=== PATIENT | male | born 1965 | race Caucasian/White ===

== ENCOUNTER 2017-03-23 22:15 | Emergency (ER) | payer BC ==
[~2017-03-23] VITALS: Ht 175.3 cm; Wt 136.1 kg
[~2017-03-23 22:15] MED LIST: ADULT LOW DOSE81 MG PO; ASPIRIN325 PO; ELIQUIS5 MG PO; HYDROCODONE-AP1 EAC6 PO; KEFLEX500 MG PO; KLOR-CON 1010 MEQ PO; LASIX 80 MG TAB80 MG PO; LOPRESSOR 12.12.5 MG PO; LOPRESSOR25 PO; LOPRESSOR50; NOHOMEMEDICATIONS; PROPAFENONE HC300 MG; RYTHMOL150 MG PO; XANAX 0.25 MG0.25 MG PO
[2017-03-23] MEDS ORDERED: LOPRESSOR50 PO (22:20)
[2017-03-24] MEDS ORDERED: HYDROCODONE-AP1 EAC6 PO (00:29)
[2017-03-24] MEDS ORDERED: FLEXERIL PO (00:29)
[2017-03-24 01:05] VITALS: BP 134/80
== END 2017-03-24 01:07 | disposition home or self-care (01) ==
LOC: M.ERS 22:15
DX: S86.911A Strain of unspecified muscle(s) and tendon(s) at lower leg level, right leg, initial encounter (principal); I25.2 Old myocardial infarction; I48.91 Unspecified atrial fibrillation; W18.39XA Other fall on same level, initial encounter; Y93.01 Activity, walking, marching and hiking; Y92.89 Other specified places as the place of occurrence of the external cause; Y99.8 Other external cause status

== ENCOUNTER 2017-06-03 08:45 | Emergency (ER) | payer BC ==
[~2017-06-03] VITALS: Ht 175.3 cm; Wt 136.1 kg
[~2017-06-03 08:45] MED LIST changes: +FLEXERIL PO; +LOPRESSOR50 PO
[2017-06-03] MEDS ORDERED: AMIODARONE HCL100 MG PO (08:59)
[2017-06-03 09:13] LABS: ABSOLUTE BASOPHILS 0.1 thou/uL (0.0-0.2); ABSOLUTE EOSINOPHILS 0.2 thou/uL (0.0-0.7); ABSOLUTE LYMPHOCYTES 2.4 thou/uL (0.8-5.3); ABSOLUTE MONOCYTES 0.6 thou/uL (0.0-1.2); ABSOLUTE NEUTROPHILS 6.5 thou/uL (1.6-8.1); BASOPHILS 1.1 %; EOSINOPHILS 2.1 %; HEMATOCRIT 45.1 % (42.0-52.0); HEMOGLOBIN 15.2 gm/dL (14.0-18.0); LYMPHOCYTES 24.3 %; MCH 31.9 pg (26.0-34.0); MCHC 33.8 g/dL (28.0-37.0); MCV 94.4 fL (80.0-100.0); MONOCYTES 6.4 %; NUCLEATED RBCS 0 /100WBC; PLATELET COUNT* 223 thou/uL (150-400); POLYS 66.1 %; RBC 4.78 mil/uL (4.50-6.00); RDW-CV 13.1 % (10.5-14.5); WBC 9.9 thou/uL (4.0-11.0)
[2017-06-03 09:28] LABS: CALCIUM 8.8 mg/dL (8.5-10.1); CREATININE 1.3 mg/dL (0.6-1.3); POTASSIUM 4.3 mmol/L (3.5-5.1)
[2017-06-03 09:33] LABS: APTT 25.4 Seconds (25.0-31.3); PROTIME 9.8 Seconds (9.20-11.50)
[2017-06-03 09:40] LABS: ALBUMIN 3.2 g/dL (3.4-5.0); TOTAL BILIRUBIN 0.3 mg/dL (<0.1-1.0); TOTAL PROTEIN 6.6 g/dL (6.4-8.2)
[2017-06-03] MEDS ORDERED: KEFLEX500 M1 PO (10:28)
[2017-06-03] MEDS ORDERED: PERCOCET 5-3251 EACH PO (10:28)
[2017-06-03 10:37] VITALS: BP 133/88
--- NOTE | 2017-06-03 15:10 | EKG ---
[place] [address] ELECTROCARDIOGRAM REPORT Name: SRINIVASADONITA Cartagena [id number] Admission: 06/03/17 Attend Phys: Discharge: 06/03/17 Date of : 65 Report #: [id number] THIS REPORT FOR: //name// [facility] ED Test Date: 2017-06-03 Test Time: 09:10:43 Pat Name: DONITA BERNABE Department: Room: Gender: Digital Photographer: THEE Ramirez : 1965 Requested By: Jus Lazaro Order Number: [id number] MD: Hemal Sears Measurements Intervals [place] Rate: 118 P: NM: QRS: 110 QRSD: 99 T: 44 QT: 346 QTc: 485 Interpretive Statements Atrial fibrillation incomplete RBBB Compared to ECG 08/06/2015 11:31:53 Myocardial infarct finding now present Ventricular premature complex(es) no longer present Electronically Signed On 06-03-2017 15:10:12 CDT by Hemal Sears [email or web address] <ELECTRONICALLY SIGNED> By: Hemal Sears MD, [facility] 06/03/17 1510 9 9 Hemal Sears MD, FACC /EPI
== END 2017-06-03 10:38 | disposition home or self-care (01) ==
LOC: M.ERS 08:45
PROVIDERS: Family Medicine
DX: R60.0 Localized edema (principal); I48.91 Unspecified atrial fibrillation; F17.210 Nicotine dependence, cigarettes, uncomplicated

== ENCOUNTER 2017-11-09 14:02 | Inpatient (IN) | payer BC ==
[~2017-11-09] VITALS: Ht 175.3 cm; Wt 136.1 kg
[~2017-11-09 14:02] MED LIST changes: +AMIODARONE HCL100 MG PO; +KEFLEX500 M1 PO; +PERCOCET 5-3251 EACH PO
[2017-11-09 14:04] VITALS: BP 183/113
[2017-11-09 14:40] LABS: ABSOLUTE BASOPHILS 0.1 thou/uL (0.0-0.2); ABSOLUTE EOSINOPHILS 0.1 thou/uL (0.0-0.7); ABSOLUTE LYMPHOCYTES 2.8 thou/uL (0.8-5.3); ABSOLUTE MONOCYTES 0.8 thou/uL (0.0-1.2); ABSOLUTE NEUTROPHILS 9.8 thou/uL (1.6-8.1); EOSINOPHILS 0.8 %; HEMATOCRIT 47.4 % (42.0-52.0); HEMOGLOBIN 15.9 gm/dL (14.0-18.0); LYMPHOCYTES 20.4 %; MCH 31.4 pg (26.0-34.0); MCHC 33.6 g/dL (28.0-37.0); MCV 93.3 fL (80.0-100.0); MPV 8.3 fl. (7.2-11.1); NUCLEATED RBCS 0 /100WBC; PLATELET COUNT* 252 thou/uL (150-400); POLYS 71.8 %; RBC 5.08 mil/uL (4.50-6.00); RDW-CV 12.4 % (10.5-14.5); WBC 13.6 thou/uL (4.0-11.0)
[2017-11-09 14:44] LABS: ANION GAP 9 mmol/L (7-16); BUN 13 mg/dL (7-18); CALCIUM 9.2 mg/dL (8.5-10.1); CHLORIDE 101 mmol/L (98-107); CO2 28 mmol/L (21-32); CREATININE 1.2 mg/dL (0.6-1.3); GLUCOSE 262 mg/dL (70-99); POTASSIUM 4.1 mmol/L (3.5-5.1); SODIUM 138 mmol/L (136-145)
[2017-11-09 14:55] LABS: ALBUMIN 3.7 g/dL (3.4-5.0); ALKALINE PHOSPHATASE 97 U/L (46-116); LIPASE 139 U/L (73-393); NT-PRO BRAIN NAT PEPTIDE 145 pg/mL (<300); SGOT 24 U/L (15-37); SGPT 48 U/L (30-65); TOTAL BILIRUBIN 0.4 mg/dL (<0.1-1.0); TOTAL PROTEIN 7.6 g/dL (6.4-8.2); TROPONIN-I LEVEL <0.06 ng/mL (<0.06)
[2017-11-09 16:22] VITALS: BP 125/77
[2017-11-09 16:30] VITALS: BP 135/78
[2017-11-09 20:00] VITALS: BP 147/87
[2017-11-10] VITALS (7 sets, daily range): BP systolic 104–151; BP diastolic 76–89
[2017-11-10 05:18] LABS: HEMATOCRIT 43.2 % (42.0-52.0); HEMOGLOBIN 14.4 gm/dL (14.0-18.0); MCH 31.9 pg (26.0-34.0); MCHC 33.4 g/dL (28.0-37.0); MCV 95.5 fL (80.0-100.0); MPV 8.4 fl. (7.2-11.1); RBC 4.52 mil/uL (4.50-6.00)
[2017-11-10 05:39] LABS: CALCIUM 8.7 mg/dL (8.5-10.1); CREATININE 1.3 mg/dL (0.6-1.3); MAGNESIUM 1.7 mg/dL (1.8-2.4); POTASSIUM 4.2 mmol/L (3.5-5.1)
--- NOTE | 2017-11-10 13:39 | CON ---
[address] [address] CONSULTATION Name: MORRO BERNABE Room: [address] IN .R.#: [id number] Admission: 11/09/17 Attend Phys: Austen Gould MD Discharge: Date of : 65 Report #: [id number] THIS REPORT FOR: //name// CC: Austen WILSON DO Haley Wilson INDICATION: Recurrent atrial fibrillation and chest pain. HISTORY OF PRESENT ILLNESS: The patient is a very pleasant 52-year-old gentleman who is well known to myself. He has paroxysmal atrial fibrillation. He reports running out of his medications approximately 2 months ago. His medications at that time included Eliquis and amiodarone. He has had recurrent atrial fibrillation at this time. He also reports prolonged midsternal chest discomfort radiating to the neck, jaw and bilateral forearms yesterday with hypertension. The patient was admitted to the hospital. Cardiac enzymes thus far are unremarkable. EKG shows atrial fibrillation initially with rapid ventricular response. I do not appreciate any ST elevation. At the time of interview, he was more stable. His heart rate had improved, he remains in atrial fibrillation. His chest discomfort has resolved. He has no prior history of coronary artery disease. He does have a history of diastolic heart failure in the past with slight exacerbation at this time. He has obstructive sleep apnea for which he uses CPAP. PAST MEDICAL HISTORY: 1. Paroxysmal atrial fibrillation. 2. Obstructive sleep apnea. 3. Dorman's esophagitis. 4. Normal catheterization in 2010. 5. Right femur repair in 1984. 6. Back surgery in 1998. 7. Cardioversion 05/2015. FAMILY HISTORY: The patient's father had heart disease. The patient's mother had breast cancer. The patient's maternal grandfather had heart disease, maternal grandmother had heart disease. SOCIAL HISTORY: The patient smokes half to one pack of cigarettes daily. He denies use of alcohol. ALLERGIES: None. HOME MEDICATIONS: Lasix 80 mg p.o. b.i.d., potassium 40 mEq daily, Eliquis 5 mg b.i.d., metoprolol succinate 100 mg one-half tablet b.i.d., propafenone 300 mg p.o. q. 8 hours. REVIEW OF SYSTEMS: [place] [address] CONSULTATION Name: MORRO BERNABE Room: [address]#: [id number] Admission: 11/09/17 Attend Phys: Austen Gould MD Discharge: Date of : 65 Report #: [id number] GENERAL: Denies convulsions, seizures or focal paralysis. In general, there is no unexplained weight loss, or fever. RESPIRATORY: Occasional cough that is nonproductive. He denies orthopnea or paroxysmal nocturnal dyspnea. CARDIAC: As outlined above. ENDOCRINE: No history of diabetes or thyroid disease. GASTROINTESTINAL: No vomiting, hematemesis, melena, hematochezia. GENITOURINARY: No dysuria or hematuria. HEMATOLOGIC AND LYMPHATIC: No history of anemia, bleeding disorder or cancer. ALLERGY AND IMMUNOLOGIC: No significant seasonal or medical allergies. PSYCHIATRIC: No depression or anxiety. MUSCULOSKELETAL: No arthritis or connective tissue disease. SKIN: No recent rashes, hives or chronic skin conditions. EYES: He does wear glasses, has no acute loss in vision. EARS, NOSE, MOUTH, THROAT: He denies any decreased hearing or epistaxis. PHYSICAL EXAMINATION: VITAL SIGNS: Blood pressure 118/76, pulse is in the 70s and irregular. GENERAL: Pleasant, obese gentleman in no distress. Mood and affect appropriate. HEENT: The patient wears glasses. Extraocular muscles intact. Mucous membranes moist. NECK: Shows no jugular venous distention. There are no carotid bruits. CHEST: Reveals clear lung dodge without wheezes or rales. CARDIAC: Reveals an irregularly irregular rhythm without gallop or murmur. ABDOMEN: Reveals normal bowel sounds. The abdomen is soft, nontender. EXTREMITIES: Shows trace pedal and ankle edema. Peripheral pulses 2+ and palpable. SKIN: Warm and dry. LABORATORY DATA: Reviewed. Electrolytes within normal limits. BUN 17, creatinine 1.3, serum glucose 266. LFTs within normal limits. Troponin is less than 0.06 on 3 separate occasions. NT-proBNP is 145. CBC is within normal limits. Chest x-ray shows no acute process. IMPRESSION AND RECOMMENDATIONS: 1. Recurrent atrial fibrillation with rapid ventricular response. We will place the patient on bolus dose flecainide in an attempt for chemical cardioversion. Resume Eliquis 5 mg b.i.d. Continue telemetry monitoring. Continue diltiazem for rate control. 2. Chest pain. The patient has ruled out for myocardial infarction. We will obtain noninvasive stress testing at this time. Further intervention pending that result. 3. Obstructive sleep apnea. Continue CPAP. [facility] [address] [place] [address] CONSULTATION Name: MORRO BERNABE Room: [address] [facility] IN M.R.#: [id number] Admission: 11/09/17 Attend Phys: Austen Gould MD Discharge: Date of : 65 Report #: [id number] 4. Chronic tobacco use, smoking cessation discussed and advised. 5. Fxvgk-[id number]-tkpsyni diastolic heart failure with slight exacerbation. Continue furosemide. <ELECTRONICALLY SIGNED> By: Morro Valdez MD, FACC 11/10/17 1339 0932 [id number] Valdez MD, FACC /nt
--- NOTE | 2017-11-10 14:49 | EKG ---
[place] [address] ELECTROCARDIOGRAM REPORT Name: MORRO BERNABE Room: [address] ADM IN M.R.#: [id number] Admission: 11/09/17 Attend Phys: Austen Gould MD Discharge: Date of : 65 Report #: [id number] THIS REPORT FOR: //name// [facility] ED Test Date: 2017-11-09 Test Time: 14:06:39 Pat Name: MORRO SRINIVASA Department: Room: [facility] Gender: M Clerical Aide Teacher: : 1965 Requested By: Jaspreet Gonzalez Order Number: [id number] MD: Morro Valdez Measurements Intervals [place] Rate: 118 P: ME: QRS: 40 QRSD: 107 T: 25 QT: 298 QTc: 418 Interpretive Statements Atrial fibrillation Low voltage, precordial leads Right bundle-branch block Abnormal R-wave progression, early transition Compared to ECG 06/03/2017 09:10:43 Low QRS voltage now present Electronically Signed On 11-10-2017 14:49:24 CDT by Morro Valdez [email or web address] <ELECTRONICALLY SIGNED> By: Morro Valdez MD, FACC 11/10/17 1449 1406 1406 Morro Valdez MD, [facility] /EPI
--- NOTE | 2017-11-10 15:49 | 2DMMODE ---
[place] [address] 2 D/M-MODE ECHOCARDIOGRAM Name: MORRO BERNABE Room: [address] IN [facility]#: [id number] Admission: 11/09/17 Attend Phys: Austen Gould, Discharge: Date of : 65 Date of Service: 11/10/17 1549 Report #: [id number] THIS REPORT FOR: //name// APPROVED REPORT Study performed: 11/10/2017 13:35:20 EXAM: Comprehensive 2D, Doppler, and color-flow Echocardiogram Patient Location: In-Patient Room #: 206 Status: routine BSA: 2.45 HR: 71 bpm BP: 118/76 mmHg Rhythm: Atrial Fibrillation Other Information Technically limited study due to body habitus, poor endocardial definition. Indications Atrial Fibrillation Dyspnea Echo Enhancing Agent Indication: Endocardial border delineation Agent(s) / Amount(s) Used: Optison 3 cc 2D Dimensions LVEF(%): 68.55 (>50%) IVSd: 13.73 (7-11mm) LVOT Diam: 20.64 (18-24mm) LVDd: 43.33 mm PWd: 12.53 (7-11mm) Ascending Ao: 28.88 (22-36mm) LVDs: 26.83 (25-40mm) Aortic Root: 31.90 mm Elder's LVEF: 68.55 % Volumes Left Atrial Volume (Systole) LA ESV Index: 29.10 mL/m2 Aortic Valve AoV Peak Manish.: 1.17 m/s AO Peak Gr.: 5.51 mmHg LVOT Max P.46 mmHg AO Mean Gr.: 3.12 mmHg LVOT Mean P.89 [place] [address] 2 D/M-MODE ECHOCARDIOGRAM Name: MORRO BERNABE Room: [address] IN ..#: [id number] Admission: 11/09/17 Attend Phys: Austen Gould, Discharge: Date of : 65 Date of Service: 11/10/17 1549 Report #: [id number] LVOT Max V: 1.27 m/s AO V2 VTI: 18.44 cm LVOT Mean V: 0.76 m/s JELANI (VTI): 3.56 cm2 LVOT V1 VTI: 19.63 cm Mitral Valve MV Decel. Time: 166.26 ms MV PHT: 48.22 ms MVA (PHT): 4.56 cm2 Pulmonary Valve PV Peak Manish.: 1.18 m/s PV Peak Gr.: 5.56 mmHg Left Ventricle The left ventricle is normal size. There is normal LV segmental wall motion. Mild concentric left ventricular hypertrophy. Left ventricular systolic function is normal. The left ventricular ejection fraction is within the normal range. LVEF is 60-65%. This study is not technically sufficient to allow evaluation of the LV diastolic function due to atrial fibrillation. Right Ventricle Right ventricle is mildly dilated. The right ventricular systolic function is normal. Atria Left atrium is mildly dilated. Right atrium is mildly dilated. Aortic Valve The aortic valve is normal in structure. No aortic regurgitation is present. There is no aortic valvular stenosis. Mitral Valve The mitral valve is normal in structure. There is no mitral valve regurgitation noted. No evidence of mitral valve stenosis. Tricuspid Valve The tricuspid valve is normal in structure. Unable to assess PA pressure. Trace tricuspid regurgitation. Pulmonic Valve The pulmonary valve is normal in structure. Trace pulmonic regurgitation. Great Vessels The aortic root is normal in size. [place] [address] 2 D/M-MODE ECHOCARDIOGRAM Name: MORRO BERNABE Room: [address] IN [facility]#: [id number] Admission: 11/09/17 Attend Phys: Austen Gould, Discharge: Date of : 65 Date of Service: 11/10/17 1549 Report #: [id number] visualized. Pericardium There is no pericardial effusion. <Conclusion> The left ventricle is normal size. Mild concentric left ventricular hypertrophy. Left ventricular systolic function is normal. The left ventricular ejection fraction is within the normal range. LVEF is 60-65%. Right ventricle is mildly dilated. Left atrium is mildly dilated. Right atrium is mildly dilated. <ELECTRONICALLY SIGNED> By: Morro Valdez MD, FACC 11/10/17 1549 1549 1549 Morro Valdez MD, FACC /INF
--- NOTE | 2017-11-10 15:53 | CARDNUC ---
[place] [address] CARDIAC NUCLEAR IMAGING REPORT Name: MORRO BERNABE Room: [address] IN [facility]#: [id number] Admission: 11/09/17 Attend Phys: Austen Gould, Discharge: Date of : 65 Date of Service: 11/10/17 1553 Report #: [id number] THIS REPORT FOR: //name// APPROVED REPORT Imaging Protocol: Stress Tc-99m/Rest Tc-99m 2 days Study performed: 11/10/2017 09:33:00 Indication: Chest pain, Dyspnea Patient Location: In-Patient Room #: 206 Stress Tech: Mariel Mason Stress Nurse: Rosana Roberts RN NM Tech:KIRBY Marie Ht: 5 ft 9 in Wt: 300 lbs BSA: 2.45 m2 BMI: 44.29 Medical History Medical History: Obesity , SOB, Smoking, HTN, PVD, Atrial Fibrillation, CVD, [place] Medications: DILTIAZEM, ELIQUIS, METOPROLOL Allergies: No known drug allergies Cardiac Risk Factors: Age, PVD, HTN , Current Smoker, SOB, OBESITY Previous Cardiac Procedures: Myocardial infarction Exercise History: Sedentary Physical Disabilities: OBESITY Meds Held (24 hrs): METOPROLOL Pharmacologic Stress Pharmacologic stress test was performed by injecting Regadenoson 0.4 mg IV push over 10-15 seconds immediately followed by the intravenous injection of 39.8 mCi of Tc-99m Sestamibi. Time of stress injection: 1355 Date: 11/10/2017 Time of stress imagin Administration Route: IV Gated Stress SPECT was performed 40 minutes after stress injection. The images were gated to evaluate regional wall motion and calculate left ventricular ejection fraction. Prone imaging was performed. Stress Test Details Stress Test: Pharmacologic stress testing performed using 0.4 [place] [address] CARDIAC NUCLEAR IMAGING REPORT Name: MORRO BERNABE Room: [address]#: [id number] Admission: 11/09/17 Attend Phys: Austen Gould, Discharge: Date of : 65 Date of Service: 11/10/17 1553 Report #: [id number] regadenoson per 5 mL given IV over 10 seconds. Reason for pharmacologic stress test: physical limitation, AFIB. HR Max Heart Rate (APMHR): 168 bpm Resting HR: 83 bpm Target HR (85% APMHR): 142 bpm Max HR Achieved: 95 bpm % of APMHR: 56 Recovery HR: 88 bpm BP Resting BP: 107/62 mmHg Recovery BP: 129/82 mmHg ECG Resting ECG: Atrial Fibrillation Stress ECG: Atrial Fibrillation ST Change: None Recovery ECG: Atrial Fibrillation Recovery ST Change: None Clinical Reason for Termination: Completed protocol Stress Symptoms: Dyspnea, Exercise duration: 0 min 0 sec Exercise capacity: 1.00 METs The patient had no significant symptoms with Lexiscan infusion. Nurse Comments PATIENT TOLERATED TEST WELL, PATIENT VERBALLY EXPRESSED ANXIETY R/T TEST. FLOOR NURSE PROVIDED PO ANXIETY MEDICATION, EFFECTIVE. NO COMPLAINTS, PATIENT REMAINED STABLE. Stress ECG Conclusion The baseline 12-lead EKG shows atrial fibrillation without significant ST or T wave abnormality. EKGs obtained during and post Lexiscan infusion show atrial fibrillation with no significant ST or T wave changes when compared to baseline. Study Quality Study: Good Artifact: No artifact Study Data Post stress, the [place] [address] CARDIAC NUCLEAR IMAGING REPORT Name: MORRO BERNABE Room: [address] IN [facility]#: [id number] Admission: 11/09/17 Attend Phys: Austen Gould, Discharge: Date of : 65 Date of Service: 11/10/17 1553 Report #: [id number] 63%.. Perfusion Normal left ventricular perfusion. Wall Motion Normal left ventricular wall motion. Nuclear Conclusion ECG Findings: negative for ischemia Clinical Findings: negative for ischemia Nuclear Findings: negative for ischemia Exercise Capacity: not assessed Left Ventricular Function: normal Risk Study: low Myocardial perfusion images obtained post stress show no defect to suggest infarct or ischemia. Left ventricular systolic function appears grossly normal. This is a low risk study. <Conclusion> The baseline 12-lead EKG shows atrial fibrillation without significant ST or T wave abnormality. EKGs obtained during and post Lexiscan infusion show atrial fibrillation with no significant ST or T wave changes when compared to baseline. <ELECTRONICALLY SIGNED> By: Morro Valdez MD, [facility] 11/10/17 1553 1553 1553 oMrro Valdez MD, FACC /INF
[2017-11-11 02:08] LABS: GLYCOHEMOGLOBIN (HGB A1C) 8.8 % (4.8-5.6)
== END 2017-11-10 18:57 | disposition home or self-care (01) | DRG 308 ==
LOC: M.ERS 14:02 → M.TBA-ER 15:12 → M.2W 15:12
PROVIDERS: Emergency Medicine; Internal Medicine; ADMIT Internal Medicine
DX: I48.0 Paroxysmal atrial fibrillation (principal); I50.33 Acute on chronic diastolic (congestive) heart failure; Z68.41 Body mass index [BMI] 40.0-44.9, adult; I16.1 Hypertensive emergency; G47.33 Obstructive sleep apnea (adult) (pediatric); I25.10 Atherosclerotic heart disease of native coronary artery without angina pectoris; E66.01 Morbid (severe) obesity due to excess calories; E88.81 Metabolic syndrome and other insulin resistance; I11.0 Hypertensive heart disease with heart failure; E11.65 Type 2 diabetes mellitus with hyperglycemia; K22.70 Barrett's esophagus without dysplasia; F17.210 Nicotine dependence, cigarettes, uncomplicated; I25.2 Old myocardial infarction; Z79.01 Long term (current) use of anticoagulants; Z79.899 Other long term (current) drug therapy; Z82.49 Family history of ischemic heart disease and other diseases of the circulatory system

== ENCOUNTER 2017-12-24 16:15 | Emergency (ER) | payer BC ==
[~2017-12-24] VITALS: Ht 175.3 cm; Wt 128.4 kg
[2017-12-24] MEDS ORDERED: MUSCLE RELAXER (16:30)
[2017-12-24 16:59] LABS: ABSOLUTE BASOPHILS 0.2 thou/uL (0.0-0.2); ABSOLUTE EOSINOPHILS 0.3 thou/uL (0.0-0.7); ABSOLUTE MONOCYTES 0.8 thou/uL (0.0-1.2); ABSOLUTE NEUTROPHILS 7.5 thou/uL (1.6-8.1); BASOPHILS 1.4 %; EOSINOPHILS 2.6 %; HEMATOCRIT 43.3 % (42.0-52.0); HEMOGLOBIN 14.6 gm/dL (14.0-18.0); LYMPHOCYTES 25.7 %; MCH 31.1 pg (26.0-34.0); MCHC 33.6 g/dL (28.0-37.0); MCV 92.4 fL (80.0-100.0); MONOCYTES 6.9 %; MPV 7.6 fl. (7.2-11.1); NUCLEATED RBCS 0 /100WBC; PLATELET COUNT* 234 thou/uL (150-400); POLYS 63.4 %; RBC 4.69 mil/uL (4.50-6.00); RDW-CV 12.8 % (10.5-14.5); WBC 11.9 thou/uL (4.0-11.0)
[2017-12-24 17:08] LABS: CALCIUM 9.7 mg/dL (8.5-10.1); CREATININE 0.9 mg/dL (0.6-1.3)
[2017-12-24 17:13] LABS: ALBUMIN 3.2 g/dL (3.4-5.0); TOTAL BILIRUBIN 0.3 mg/dL (<0.1-1.0); TOTAL PROTEIN 6.6 g/dL (6.4-8.2)
[2017-12-24] MEDS ORDERED: NORCO 5-325 TA1 EACH PO (19:09)
[2017-12-24] MEDS ORDERED: ROBAXIN 750 MG750 M1 PO (19:10)
[2017-12-24 19:30] VITALS: BP 140/88
== END 2017-12-24 19:31 | disposition home or self-care (01) ==
LOC: M.ERS 16:15
PROVIDERS: Physician Assistant
DX: S39.021A Laceration of muscle, fascia and tendon of abdomen, initial encounter (principal); I25.10 Atherosclerotic heart disease of native coronary artery without angina pectoris; I48.91 Unspecified atrial fibrillation; E66.01 Morbid (severe) obesity due to excess calories; F17.210 Nicotine dependence, cigarettes, uncomplicated; Z68.41 Body mass index [BMI] 40.0-44.9, adult; W18.39XA Other fall on same level, initial encounter; Y93.89 Activity, other specified; Y92.89 Other specified places as the place of occurrence of the external cause; Y99.8 Other external cause status